=== PATIENT | male | born 1965 | race Caucasian/White ===

== ENCOUNTER 2019-02-16 11:59 | Outpatient (REF) | payer BC, SELFPAY ==
[2019-02-16 23:04] LABS: ALT 45 U/L (16-63); AST 26 U/L (15-37); Albumin 4.3 g/dL (3.4-5.0); Alkaline Phosphatase 102 U/L (46-116); Anion Gap 12.1 mmol/L (3-11); BUN 20 mg/dL (7-18); Bilirubin, Total 0.5 mg/dL (0.2-1.0); CO2 23.9 mmol/L (21.0-32.0); CREATININE 0.99 mg/dL (0.70-1.30); Calculated LDL 137 mg/dL; Chloride 102 mmol/L (98-107); Cholesterol 199 mg/dL (<200); Glucose 115 mg/dL (74-106); HDL Cholesterol 54 mg/dL (40-60); Potassium 4.5 mmol/L (3.5-5.1); Sodium 138 mmol/L (136-145); Total Protein 7.9 g/dL (6.4-8.2); Triglyceride 42 mg/dL (<150)
== END 2019-02-16 12:19 ==
LOC: NCHCN 11:59
PROVIDERS: PCP Internal Medicine; Visit Provider Internal Medicine
DX: Z00.00 Encounter for general adult medical examination without abnormal findings (principal); I10 Essential (primary) hypertension
CPT/HCPCS: 80053; 80061

== ENCOUNTER 2021-02-05 15:29 | Outpatient (REF) | payer BC, SELFPAY ==
[2021-02-06 00:43] LABS: Hemoglobin A1C 5.5 % (<5.7)
[2021-02-06 08:26] LABS: Albumin 4.3 g/dL (3.4-5.0); BUN 28 mg/dL (7-18); CREATININE 1.2 mg/dL (0.70-1.30); Calcium 9.1 mg/dL (8.5-10.1); Calculated LDL 144 mg/dL (<100); Cholesterol 217 mg/dL (<200); Glucose 111 mg/dL (74-106); HDL Cholesterol 62 mg/dL (40-60); Triglyceride 56 mg/dL (<150)
[2021-02-06 08:27] LABS: ALT 42 U/L (16-63); AST 24 U/L (15-37); Alkaline Phosphatase 90 U/L (46-116); Anion Gap 15.2 mmol/L (3-11); Bilirubin, Total 0.5 mg/dL (0.2-1.0); CO2 22.8 mmol/L (21.0-32.0); Chloride 102 mmol/L (98-107); Potassium 4.8 mmol/L (3.5-5.1); Sodium 140 mmol/L (136-145)
== END 2021-02-05 15:30 | disposition home or self-care (01) ==
LOC: NCHCN 15:29
PROVIDERS: PCP Internal Medicine; Visit Provider Registered Nurse
DX: I10 Essential (primary) hypertension (principal); I48.0 Paroxysmal atrial fibrillation; E66.9 Obesity, unspecified
CPT/HCPCS: 80053; 80061; 83036

== ENCOUNTER 2021-08-20 10:18 | Outpatient (REF) | payer BC, SELFPAY ==
[2021-08-20 15:05] LABS: Anion Gap 10.8 mmol/L (3-11); BUN 23 mg/dL (7-18); CO2 27.2 mmol/L (21.0-32.0); CREATININE 1.1 mg/dL (0.70-1.30); Calcium 8.7 mg/dL (8.5-10.1); Calculated LDL 92 mg/dL (<100); Chloride 103 mmol/L (98-107); Cholesterol 157 mg/dL (<200); Glucose 103 mg/dL (74-106); HDL Cholesterol 58 mg/dL (40-60); Potassium 4.1 mmol/L (3.5-5.1); Sodium 141 mmol/L (136-145); Triglyceride 39 mg/dL (<150)
== END 2021-08-20 10:19 | disposition home or self-care (01) ==
LOC: NCHCN 10:18
PROVIDERS: PCP Internal Medicine; Visit Provider Registered Nurse
DX: I10 Essential (primary) hypertension (principal); E78.5 Hyperlipidemia, unspecified
CPT/HCPCS: 80048; 80061

== ENCOUNTER 2023-07-30 14:42 | Outpatient (REF) | payer BC, SELFPAY ==
[2023-07-30 21:21] LABS: ALT 48 U/L (16-63); AST 29 U/L (15-37); Albumin 4.2 g/dL (3.4-5.0); Alkaline Phosphatase 94 U/L (46-116); Anion Gap 11.4 mmol/L (3-11); BUN 25 mg/dL (7-18); Bilirubin, Total 0.8 mg/dL (0.2-1.0); CO2 25.6 mmol/L (21.0-32.0); Calcium 9.3 mg/dL (8.5-10.1); Calculated LDL 80 mg/dL (<100); Chloride 103 mmol/L (98-107); Cholesterol 158 mg/dL (<200); Estimated GFR 88.33 (mL/min/1.73m2); Glucose 100 mg/dL (74-106); HDL Cholesterol 73 mg/dL (40-60); Potassium 4.1 mmol/L (3.5-5.1); Sodium 140 mmol/L (136-145); Total Protein 7.7 g/dL (6.4-8.2); Triglyceride 28 mg/dL (<150)
== END 2023-07-30 14:43 | disposition home or self-care (01) ==
LOC: NCHCN 14:42
PROVIDERS: PCP Internal Medicine; Visit Provider Registered Nurse
DX: I10 Essential (primary) hypertension (principal)
CPT/HCPCS: 80053; 80061